=== PATIENT | female | born 1960 | race Caucasian/White ===

== ENCOUNTER → 2019-06-30 | Outpatient (CLI) | payer BC | LOC: LAB EV 10:00 → LAB SHORT 10:00 | DX: N39.0 Urinary tract infection, site not specified (principal) | CPT/HCPCS: 87077; 87086; 87186 ==

== ENCOUNTER → 2021-05-06 | Outpatient (CLI) | payer BC ==
[2021-05-08 15:32] LABS: CORONAVIRUS (COVID19) CSH-NRL Negative (Negative)
== END | disposition home or self-care (01) ==
LOC: LAB 16:10 → LAB SHORT 16:10
PROVIDERS: Family Medicine
DX: Z01.812 Encounter for preprocedural laboratory examination (principal); Z20.822 Contact with and (suspected) exposure to COVID-19
CPT/HCPCS: U0003

== ENCOUNTER → 2024-06-11 | Outpatient (CLI) | payer MEDICARE | LOC: LAB 07:37 → LAB SHORT 07:37 → PLD 07:37 | DX: L57.0 Actinic keratosis (principal); L81.9 Disorder of pigmentation, unspecified | CPT/HCPCS: 88305; 88312 ==